=== PATIENT | male | born 1995 | race Caucasian/White ===

== ENCOUNTER 2018-04-09 18:58 | Emergency (ER) | payer BC ==
[2018-04-09 19:22] VITALS: BP 130/74
--- NOTE | 2018-04-09 20:29 | EDM.PDOC ---
ED HPI GENERAL MEDICAL PROBLEM - General Chief Complaint: Eye Problems Stated Complaint: EYE PROBLEM Time Seen by Provider: 04/09/18 19:45 Source of Information: Reports: Patient History Limitations: Reports: No Limitations - History of Present Illness INITIAL COMMENTS - FREE TEXT/NARRATIVE: 22-year-old male presents for evaluation and treatment of a foreign body in the left eye. Patient reports this afternoon he was taking a bolt off a manifold when he got a metal shaving in his left eye. Reports discomfort to the left eye. Reports injection in the left eye. States that his eye was initially blurry from the increased tearing he denies any currently vision or double vision. No headaches. Reports a foreign body sensation. Reports that he feels the discomfort when he blinks. Patient does not wear glasses or contacts. He is not wearing any protective eyewear when this occurred. Left Eye Pain Score (Numeric/FACES): 4 - Related Data Allergies Allergy/AdvReac Type Severity Reaction Status Date / Time zolpidem [From Ambien] Allergy Hallucinati Verified 04/09/18 19:19 ons Home Meds: Home Meds Sertraline HCl [Zoloft] 50 mg PO DAILY 01/13/15 [History] Polymyxin B Sulf/Trimethoprim [Polytrim Eye Drops] 10 ml OP QID #1 bottle [Rx] Past Medical History Psychiatric History: Reports: ADD, Anxiety - Past Surgical History HEENT Surgical History: Reports: Oral Surgery, Tonsillectomy Social & Family History - Living Situation & Occupation Living situation: Reports: Single, with Family Occupation: Employed ED ROS GENERAL - Review of Systems Review Of Systems: See Below HEENT: Reports: Eye Pain (left). Denies: Vision Change Neurological: Denies: Headache ED EXAM GENERAL W FULL EYE - Physical Exam Exam: See Below Exam Limited By: No Limitations General Appearance: Alert, WD/WN, No Apparent Distress With Correction: No Eyelids: Left: Foreign Body (upper lid, black spec), Lid Everted for Exam Conjunctiva & Sclera: Left: Injected Cornea Exam: Left: Corneal Abrasion (2 small corneal abrasions at the3 o'clock and the 5 o'clock positino), Examined with Flourescein Extraocular Movements: Bilateral: Intact Pupils: Normal Accommodation Pupillary Size: Bilateral: 5 mm Pupillary Reaction: Bilateral: Brisk Anterior Chamber: Bilateral: Normal Appearance Ears: Normal External Exam Throat/Mouth: Normal Inspection Respiratory/Chest: No Respiratory Distress Neurological: Alert, Oriented, Normal Cognition Psychiatric: Normal Affect, Normal Mood Skin Exam: Warm, Dry, Normal Color Course - Vital Signs Last Recorded V/S: Last Vital Signs Temp 37.3 C 04/09/18 19:19 Pulse 77 04/09/18 19:19 Resp 15 04/09/18 19:19 BP 130/74 04/09/18 19:19 Pulse Ox 98 04/09/18 19:19 - Re-Assessments/Exams Free Text/Narrative Re-Assessment/Exam: 04/09/18 20:18 I examined eye with the slit lamp and fluorescein. Patient tolerated procedure well. He is given proparacaine which gave him good relief. A speck was found on the left upper lid. 2 small corneal abrasions are found. He elected to go with eye drops versus eye ointment. I will have him follow-up with an eye doctor. Discharge instructions as documented. Departure - Departure Time of Disposition: 20:20 Disposition: Home, Self-Care 01 Condition: Fair Clinical Impression: Foreign body, eye, Corneal abrasion - Discharge Information Prescriptions: Polymyxin B Sulf/Trimethoprim [Polytrim Eye Drops] 10 ml OP QID #1 bottle Instructions: Eye Foreign Body, [id number], Corneal Abrasion, [id number] Referrals: Yolanda Torrez NP [Primary Care Provider] - Forms: ED Department Discharge Additional Instructions: polytrim drops 1 gtt to the left eye qid x 7 days [id number] Tylenol or Motrin seen for pain relief. Follow up with an eye doctor the end of this week for recheck of your symptoms. Please return to the ER should your symptoms change or worsen.
== END 2018-04-09 20:41 | disposition home or self-care (01) ==
LOC: JD.ED 18:58
DX: T15.12XA Foreign body in conjunctival sac, left eye, initial encounter (principal); Z88.8 Allergy status to other drugs, medicaments and biological substances; Z79.899 Other long term (current) drug therapy; W45.8XXA Other foreign body or object entering through skin, initial encounter
CPT/HCPCS: 65222; 99282-25; 99283

== ENCOUNTER 2019-08-16 08:44 | Emergency (ER) | payer OTHER ==
[2019-08-16 08:58] VITALS: BP 126/79; PULSE 60
--- NOTE | 2019-08-16 09:36 | EDM.PDOC ---
ED HPI GENERAL MEDICAL PROBLEM - General Chief Complaint: Chest Pain Stated Complaint: CHEST PAIN Time Seen by Provider: 08/16/19 09:30 Source of Information: Reports: Patient, Family (mother) History Limitations: Reports: No Limitations - History of Present Illness INITIAL COMMENTS - FREE TEXT/NARRATIVE: 23-year-old male presents to the ED with diffuse right sided chest pain. There is a pleuritic component to the pain with deep breathing making it worse. Patient states for 2 weeks he had upper respiratory tract infection with heart paroxysmal productive cough but it seems to be getting better. Yesterday in his right lower anterior chest radiate slightly into his back. He did have associated fever and chills with onset of his illness 2 weeks ago. No fever or chills now. His chief complaint was worried about his heart. He was also told of [place] that he may have a pulmonary embolism. Note his O2 sats are 99% on room air. He has no heartburn or indigestion symptoms. Onset: Gradual Onset Date: 08/15/19 (Developed right lower anterior chest pain radiating around to his back yesterday. Worse this morning) Duration: Hour(s):, Getting Worse Location: Reports: Chest (Right anterior lateral lower chest rating around into his back.) Quality: Reports: Ache, Sharp, Stabbing, Other (Pleuritic-like pain.) Severity: Moderate Improves with: Reports: Rest Worsens with: Reports: Other, Movement Context: Denies: Activity, Exercise, Lifting (Deep breathing and coughing make it worse.), Sick Contact, Trauma, Other Associated Symptoms: Reports: Chest Pain, Cough. Denies: No Other Symptoms ( Right anterior lateral chest pain radiates into his back.), Confusion, cough w sputum (Nonproductive now but was productive of a week ago), Diaphoresis, Fever/ Chills, Headaches, Loss of Appetite, Malaise, Nausea/Vomiting, Rash, Seizure, Shortness of Breath, Syncope, Weakness Treatments ENFORCEMENT MANAGER: Reports: Other (see below) (None.) Sternum Pain Score (Numeric/FACES): 6 - Related Data Allergies Allergy/AdvReac Type Severity Reaction Status Date / Time zolpidem [From Ambien] Allergy Hallucinati Verified 08/16/19 08:58 ons Home Meds: Home Meds Diclofenac Sodium [Voltaren] 50 mg PO TID #21 tab.ec 08/16/19 [Rx] Past Medical History Psychiatric History: Reports: ADD, Anxiety, Other (See Below) (Insomnia) - Past Surgical History HEENT Surgical History: Reports: Oral Surgery, Tonsillectomy Social & Family History - Family History Family Medical History: Noncontributory - Caffeine Use Caffeine Use: Reports: Coffee - Living Situation & Occupation Living situation: Reports: Single, with Family Occupation: Employed ED ROS GENERAL - Review of Systems Review Of Systems: See Below Constitutional: Reports: Fever, Chills (10 days ago), Decreased Appetite. Denies: Malaise, Weakness ( and days ago but nothing in the last 3 days.), Fatigue, Weight Loss HEENT: Reports: No Symptoms (Getting better now.) Respiratory: Reports: Shortness of Breath, Pleuritic Chest Pain. Denies: Cough , Sputum, Hemoptysis, Other Cardiovascular: Reports: Chest Pain. Denies: Blood Pressure Problem (Right anterior lateral chest pain rating to his back.), Claudication, Dyspnea on Exertion, Edema, Lightheadedness, Orthopnea Endocrine: Reports: No Symptoms GI/Abdominal: Reports: No Symptoms : Reports: No Symptoms Musculoskeletal: Reports: No Symptoms Skin: Reports: No Symptoms Neurological: Reports: No Symptoms Psychiatric: Reports: No Symptoms Hematologic/Lymphatic: Reports: No Symptoms Immunologic: Reports: No Symptoms ED EXAM, GENERAL - Physical Exam Exam: See Below Exam Limited By: No Limitations General Appearance: Alert, WD/WN, Anxious, Mild Distress Eye Exam: Bilateral Eye: Normal Inspection (No scleral icterus.) Throat/Mouth: Normal Inspection, Normal Lips, Normal Oropharynx Head: Atraumatic, Normocephalic Neck: Normal Inspection, Supple, Non-Tender, Full Range of Motion. No: Lymphadenopathy (L), Lymphadenopathy (R) Respiratory/Chest: Lungs Clear, Normal Breath Sounds, No Accessory Muscle Use, Other (Does have marked chest wall tenderness on palpation of ribs 234 and 5 midclavicular line on the right side. Particular the fourth rib. This appears to be the source of his current chest pain.) Cardiovascular: Normal Peripheral Pulses, Regular Rate, Rhythm, No Edema, No Gallop, No Murmur, No Rub Peripheral Pulses: 3+: Posterior Tibial (L), Posterior Tibial (R), Dorsalis Pedis (L), Dorsalis Pedis (R) GI/Abdominal: Normal Bowel Sounds, Soft, Non-Tender, No Organomegaly, No Abnormal Bruit, No Mass, Pelvis Stable Back Exam: Normal Inspection, Full Range of Motion. No: CVA Tenderness (L), CVA Tenderness (R) Extremities: Normal Inspection, Normal Range of Motion, Non-Tender, No Pedal Edema Neurological: Alert, Oriented, CN II-XII Intact, Normal Cognition Psychiatric: Normal Affect, Normal Mood Skin Exam: Warm, Dry, Intact, Normal Color, No Rash EKG INTERPRETATION EKG Date: 08/16/19 Time: 09:19 Rhythm: NSR Rate (Beats/Min): 61 [place]: Normal P-Wave: Present QRS: Normal ST-T: Normal QT: Normal EKG Interpretation Comments: Normal ECG Course - Vital Signs Last Recorded V/S: Last Vital Signs Temp 36.6 C 08/16/19 08:54 Pulse 60 08/16/19 08:54 Resp 18 08/16/19 08:54 BP 126/79 08/16/19 08:54 Pulse Ox 100 08/16/19 08:54 - Orders/Labs/Meds Orders: Active Orders 24 hr Category Date Time Status EKG Documentation Completion [RC] ASDIRECTED Care 08/16/19 08:59 Active CXR [Chest 1V Frontal] [CR] Stat Exams 08/16/19 08:58 Taken EKG 12 Lead [EK] Stat Ther 08/16/19 08:59 Ordered Labs: Laboratory Tests 08/16/19 08/16/19 Range/Units 09:15 09:15 D-Dimer, Quantitative < 0.19 L (0.19-0.50) mg/L Troponin I < 0.017 (0.00-0.056) ng/mL C-Reactive Protein < 0.2 (<1.0) mg/dL - Radiology Interpretation Free Text/Narrative:: 43-year-old male presents to the ED with right-sided chest pain worse with certain movements with a pleuritic component. This is predated by an upper respiratory tract infection with harsh paroxysmal cough fever chills for about 10 days. States his cough is pretty well gone did not bring up any sputum. No further fever or chills. Appetite is good. No known recent chest wall injury. He did attend the walk-in clinic across the street and they referred him directly to the ED due to complaint of chest pain. Exam reveals marked chest wall tenderness in the distribution of the right ribs particularly 234 and 5 in the midclavicular line. Lungs are clear. ECG shows sinus rhythm with no signs of ischemic change. Plan 1 view chest x-ray to be obtained. Triage nurse has ordered a CRP, d-dimer and a troponin value. - Re-Assessments/Exams Free Text/Narrative Re-Assessment/Exam: 08/16/19 09:39 Portable chest x-ray is completely normal. Lung reza are clear. Kernig silhouette is normal. Eyes been infective process 08/16/19 10:13 Labs are back. D-dimer is less than 0.19. Troponin is less than 0.017. C-reactive protein is less than 0.2. Patient reassured of the findings. Is coming from chest wall pain without any pneumonia. There is a slight pleuritic component to his pain. I'm going to place him on Voltaren 50 mg 3 times daily for 7 days. Departure - Departure Time of Disposition: 10:16 Disposition: Home, Self-Care 01 Condition: Fair Clinical Impression: Non-cardiac chest pain, Acute chest wall pain Prescriptions: Diclofenac Sodium [Voltaren] 50 mg PO TID #21 tab.ec Instructions: Chest Wall Pain, [id number] Referrals: Yolanda Brink BRIDGE OPERATOR [Primary Care Provider] - Forms: ED Department Discharge, ED Return to Work/School Form Additional Instructions: Evaluation the emergency room this morning in regards to diffuse right-sided chest pain which is very sharp and stabbing worsens with deep breath suggesting a pleuritic component to the pain. This has occurred about 2 weeks after experiencing a viral upper respiratory tract infection with harsh paroxysmal cough fever and chills. Examination reveals chest wall tenderness particularly ribs 234 and 5 midclavicular line and the right side. This is compatible with inflammation of the lining of the rib in this area and irritation of the nerve that runs under each rib is why sometimes it will radiate through to the back. Investigations done in the ED were negative. Normal heart tracing her ECG. Normal chest x-ray. Normal labs which ruled out any blood clot along and any heart related illness. This is a viral infection of the chest wall or lining of the rib which often occurs within a month of an upper respiratory tract infection. Treatment is conservative with anti-inflammatory Voltaren 50 mg 3 times daily for the next 7 days. May return to work tomorrow as planned. - My Orders Last 24 Hours: My Active Orders 08/16/19 08:58 CXR [Chest 1V Frontal] [CR] Stat 08/16/19 08:59 EKG Documentation Completion [RC] ASDIRECTED EKG 12 Lead [EK] Stat - Assessment/Plan Last 24 Hours: My Active Orders 08/16/19 08:58 CXR [Chest 1V Frontal] [CR] Stat 08/16/19 08:59 EKG Documentation Completion [RC] ASDIRECTED EKG 12 Lead [EK] Stat
--- NOTE | 2019-08-16 12:24 | CR ---
Chest: Portable view of the chest was obtained. Comparison: Prior chest x-ray of 07/07/16. Heart size and mediastinum are normal. Lungs are clear. Bony structures are grossly intact. Impression: 1. Nothing acute is seen on portable chest x-ray. Diagnostic code #1
== END 2019-08-16 10:27 | disposition home or self-care (01) ==
LOC: JD.ED 08:44
DX: R07.89 Other chest pain (principal); Z88.8 Allergy status to other drugs, medicaments and biological substances
CPT/HCPCS: 36415; 71045; 71045-26; 84484; 85379; 86140; 93005; 99285-25

== ENCOUNTER 2020-02-11 12:07 | Emergency (ER) | payer OTHER ==
[2020-02-11 12:16] VITALS: BP 134/78; PULSE 84
[2020-02-11] MEDS ORDERED: Acetaminophen 325 MG Tab PO ONE (13:13)
--- NOTE | 2020-02-11 13:24 | EDM.PDOC ---
ED HPI GENERAL MEDICAL PROBLEM - General Chief Complaint: Chest Pain Stated Complaint: SOB, CHEST PAIN Time Seen by Provider: 02/11/20 12:15 Source of Information: Reports: Patient, RN Notes Reviewed (4-year-old male in onset of left-sided chest pain about 45 minutes prior to arrival. This came on as a sharp shooting pain left chest radiating to left lateral chest. The pain is sharp, not quite as severe now as it was but still having moderate discomfort at time of evaluation. Is not going to shoulder arm neck or back. He does feel it is somewhat worse with deep breathing. He is not currently short of breath. He has not been ill with recent fever cough chills sore throat or anything of that nature.) Left Chest Pain Score (Numeric/FACES): 8 - Related Data Allergies Allergy/AdvReac Type Severity Reaction Status Date / Time zolpidem [From Ambien] Allergy Hallucinati Verified 02/11/20 12:16 ons Home Meds: Home Meds . [No Known Home Meds] 02/11/20 [History] Past Medical History Respiratory History: Reports: Other (See Below) Other Respiratory History: pleurisy to L side Psychiatric History: Reports: ADD, Anxiety, Other (See Below) - Infectious Disease History Infectious Disease History: Reports: Chicken Pox - Past Surgical History HEENT Surgical History: Reports: Oral Surgery, Tonsillectomy Social & Family History - Family History Family Medical History: Noncontributory - Tobacco Use Smoking Status *Q: Former Smoker Used Tobacco, but Quit: Yes Month/Year Tobacco Last Used: 01/2020 - Caffeine Use Caffeine Use: Reports: None - Recreational Drug Use Recreational Drug Use: No - Living Situation & Occupation Living situation: Reports: Single, with Family Occupation: Employed ED ROS GENERAL - Review of Systems Review Of Systems: See Below Constitutional: Denies: Fever, Chills, Diaphoresis HEENT: Reports: No Symptoms Respiratory: Reports: Pleuritic Chest Pain. Denies: Shortness of Breath, Cough Cardiovascular: Reports: Chest Pain GI/Abdominal: Denies: Abdominal Pain, Nausea, Vomiting Musculoskeletal: Denies: Neck Pain, Shoulder Pain, Arm Pain, Back Pain Skin: Reports: No Symptoms ED EXAM, GENERAL - Physical Exam Exam: See Below General Appearance: Alert, Anxious, Mild Distress Throat/Mouth: Normal Inspection, Normal Oropharynx Head: Atraumatic Neck: Supple, Full Range of Motion Respiratory/Chest: No Respiratory Distress, Lungs Clear, Normal Breath Sounds. No: Rhonchi, Wheezing Cardiovascular: Regular Rate, Rhythm, Other (Of note and interest patient had quite significant tenderness of his left lateral lower chest and mild tenderness of the left sternal border) GI/Abdominal: Soft, Non-Tender. No: Guarding Back Exam: No: CVA Tenderness (L), CVA Tenderness (R) Extremities: Normal Inspection, Normal Range of Motion. No: Pedal Edema, Leg Pain, Redness Neurological: Alert, Oriented, No Motor/Sensory Deficits Course - Vital Signs Last Recorded V/S: Last Vital Signs Temp 98.2 F 02/11/20 12:14 Pulse 84 02/11/20 12:14 Resp 18 02/11/20 12:14 BP 134/78 02/11/20 12:14 Pulse Ox 99 02/11/20 12:14 - Orders/Labs/Meds Orders: Active Orders 24 hr Category Date Time Status EKG 12 Lead [EKG Documentation Completion] [RC] STAT Care 02/11/20 12:35 Inactive Labs: Laboratory Tests 02/11/20 Range/Units 12:54 D-Dimer, Quantitative < 0.19 L (0.19-0.50) mg/L Meds: Medications Discontinued Medications Generic Name Dose Route Start Last Admin Trade Name Álvaro PRN Reason Stop Dose Admin Acetaminophen 975 mg 02/11/20 13:13 02/11/20 13:20 Tylenol PO 02/11/20 13:14 975 mg NOW ONE Administration - Re-Assessments/Exams Free Text/Narrative Re-Assessment/Exam: 02/11/20 13:23 EKG was ordered along with single view chest x-ray, d-dimer. For reasons unclear patient and his mother are refusing the EKG. Therefore that has been canceled. Chest x-ray is normal. D-dimer did come back normal. Patient resting more comfortably at time of reexam. Discharge instructions as documented. Departure - Departure Time of Disposition: 14:25 Disposition: Home, Self-Care 01 Condition: Fair Clinical Impression: Atypical chest pain, Chest wall pain Instructions: Nonspecific Chest Pain, Adult, [id number] Referrals: Yolanda Brink TEAM GUIDE [Primary Care Provider] - Forms: ED Department Discharge Additional Instructions: Alternate Tylenol with Advil or Aleve until discomfort has resolved, also alternate ice and heat to areas of discomfort as needed. Follow up clinic if this has not gone away within 1 to 2 days as expected, return to ED as needed as discussed if symptoms worsening in any way. Sepsis Event Note - Evaluation Sepsis Screening Result: No Definite Risk - Focused Exam Vital Signs: Vital Signs Temp Pulse Resp BP Pulse Ox 02/11/20 12:14 98.2 F 84 18 134/78 99 Date Exam was Performed: 02/11/20 Time Exam was Performed: 15:53 - My Orders Last 24 Hours: My Active Orders 02/11/20 12:35 EKG 12 Lead [EKG Documentation Completion] [RC] STAT - Assessment/Plan Last 24 Hours: My Active Orders 02/11/20 12:35 EKG 12 Lead [EKG Documentation Completion] [RC] STAT
--- NOTE | 2020-02-11 14:49 | CR ---
Chest: Portable view of the chest was obtained. Comparison: Previous chest x-ray of 08/16/19. Heart size and mediastinum are within normal limits. Lungs are clear with no acute parenchymal change. Bony structures are grossly intact. Impression: 1. Nothing acute is seen on portable chest x-ray. Diagnostic code #1 This report was dictated in MDT
== END 2020-02-11 14:34 | disposition home or self-care (01) ==
LOC: JD.ED 12:07
DX: R07.89 Other chest pain (principal); Z88.8 Allergy status to other drugs, medicaments and biological substances; Z87.891 Personal history of nicotine dependence
CPT/HCPCS: 36415; 71045; 85379; 99285; A9270; 93010; 99283

== ENCOUNTER 2021-05-24 02:09 | Emergency (ER) | payer OTHER ==
[2021-05-24 02:18] VITALS: BP 154/78; PULSE 84
[2021-05-24] MEDS ORDERED: Fluorescein 1 MG Ophth Strip ONE (02:20)
--- NOTE | 2021-05-24 02:51 | EDM.PDOC ---
ED HPI GENERAL MEDICAL PROBLEM - General Chief Complaint: Eye Problems Stated Complaint: SOMETHING IN RIGHT EYE Time Seen by Provider: 05/24/21 02:22 Source of Information: Reports: Patient History Limitations: Reports: No Limitations - History of Present Illness INITIAL COMMENTS - FREE TEXT/NARRATIVE: Patient is a 25-year-old male who was grinding on some metal yesterday and is feeling eye irritation with a foreign body in his right eye. Symptoms have been getting worse tonight he is unable to sleep. He denies any discharge from the eye. He does not wear contacts. He was not using any protective eye gear. He has taken nothing for his current symptoms. He has had previously similar symptoms in the past. Duration: Getting Worse Location: Reports: Face Quality: Reports: Burning, Dull Severity: Moderate Improves with: Reports: None Worsens with: Reports: None Associated Symptoms: Reports: No Other Symptoms Right Eye Pain Score (Numeric/FACES): 10 - Related Data Allergies Allergy/AdvReac Type Severity Reaction Status Date / Time zolpidem [From Ambien] Allergy Hallucinati Verified 05/24/21 02:18 ons Home Meds: Home Meds Diclofenac Sodium [Voltaren 0.1% Ophth Soln] 1 drop OP QID #1 bottle 05/24/21 [Rx] Past Medical History Respiratory History: Reports: Other (See Below) Other Respiratory History: pleurisy to L side Psychiatric History: Reports: ADD, Anxiety, Other (See Below) - Infectious Disease History Infectious Disease History: Reports: Chicken Pox - Past Surgical History HEENT Surgical History: Reports: Oral Surgery, Tonsillectomy Social & Family History - Family History Family Medical History: No Pertinent Family History - Tobacco Use Tobacco Use Status *Q: Never Tobacco User - Caffeine Use Caffeine Use: Reports: None - Living Situation & Occupation Living situation: Reports: Single, with Family Occupation: Employed ED ROS GENERAL - Review of Systems Review Of Systems: Comprehensive ROS is negative, except as noted in HPI. ED EXAM GENERAL W FULL EYE - Physical Exam Exam: See Below Exam Limited By: No Limitations General Appearance: Alert, No Apparent Distress Eye Exam: Right Eye: Foreign Body (Metallic foreign body at approximately 9:00.) Cornea Exam: Right: Foreign Body (Metallic foreign body at 9:00.) Pupils: Normal Accommodation Pupillary Reaction: Bilateral: Brisk Head: Normocephalic Neck: Normal Inspection Respiratory/Chest: No Respiratory Distress Extremities: Normal Inspection Neurological: Alert, Oriented Psychiatric: Normal Affect Skin Exam: Warm, Dry ED EYE w/ Add Procedure - Eye Procedure Alcaine Drops Administered: Yes Eye FB Removal: Other (With ophthalmic drill bit.) Progress: Foreign body at approximately 9:00 removed with ophthalmic drop but without complication. Patient tolerated procedure well. Eye was then flushed with approximately 20 cc of saline solution. We are placing erythromycin ophthalmic ointment in the eye and giving him a prescription for some inflammatory drops. Course - Vital Signs Last Recorded V/S: Last Vital Signs Temp 97.5 F 05/24/21 02:15 Pulse 84 05/24/21 02:15 Resp 18 05/24/21 02:15 BP 154/78 H 05/24/21 02:15 Pulse Ox 100 05/24/21 02:15 - Orders/Labs/Meds Meds: Medications Discontinued Medications Generic Name Dose Route Start Last Admin Trade Name Seeq PRN Reason Stop Dose Admin Fluorescein Sodium Confirm 05/24/21 02:20 Fluorescein 1 Mg Ophth Strip Administered 05/24/21 02:21 Dose 1 mg .ROUTE .STK-MED ONE Departure - Departure Time of Disposition: 02:51 Disposition: Home, Self-Care 01 Condition: Good Clinical Impression: Foreign body, eye - Discharge Information Instructions: Eye Foreign Body, [id number] Referrals: Yolanda Brink NP [Primary Care Provider] - Sepsis Event Note (ED) - Evaluation Sepsis Screening Result: No Definite Risk - Focused Exam Vital Signs: Vital Signs Temp Pulse Resp BP Pulse Ox 05/24/21 02:15 97.5 F 84 18 154/78 H 100
[2021-05-24] MEDS ORDERED: Erythromycin Base 0.5% Ophth Oint 1 GM Tube ONE (02:53)
[2021-05-24] MEDS ORDERED: Fluorescein 1 MG Ophth Strip EYERT ONE (02:54)
[2021-05-24] MEDS ORDERED: Proparacaine 0.5% Ophth Soln 15 ML Bottle EYERT STA (02:54)
[2021-05-24] MEDS ORDERED: Erythromycin Base 0.5% Ophth Oint 1 GM Tube EYERT ONE ×2 (02:56→03:07)
== END 2021-05-24 03:06 | disposition home or self-care (01) ==
LOC: JD.ED 02:09
DX: T15.91XA Foreign body on external eye, part unspecified, right eye, initial encounter (principal); Z88.8 Allergy status to other drugs, medicaments and biological substances
CPT/HCPCS: 99283; A9270